=== PATIENT | male | born 1980 | race Caucasian/White ===

== ENCOUNTER 2017-02-21 12:45 | Emergency (ER) | payer SELFPAY ==
--- NOTE | 2017-02-21 12:58 | Emergency Department Report ---
ED General Adult HPI - General Chief complaint: Upper Respiratory Infection Stated complaint: SOB/CHEST PAIN/COUGHING Time Seen by Provider: 02/21/17 12:51 Source: patient Mode of arrival: Ambulatory Limitations: No Limitations - History of Present Illness Initial comments: PT c/o c/c/c since Tuesday. PT states he had to leave work today because of his symptoms. PT states he has taken otc medications without relief. Pt is a smoker. PT states he has a hx of URI last year PT states NKDA. Complaint: cough -: Gradual Location: chest Consistency: constant Worsens with: other (worse at work today, had to leave ) Associated Symptoms: denies: chest pain, fever/chills, nausea/vomiting Treatments Prior to Arrival: other (otc cold medication ) - Related Data Previous Rx's Medication Instructions Recorded Last Taken Type Albuterol Sulfate [Ventolin HFA] 2 puff IH Q4H PRN #1 hfa.aer.ad 02/21/17 Unknown Rx Benzonatate [Tessalon Perles] 100 mg PO Q8HR PRN #12 capsule 02/21/17 Unknown Rx Guaifenesin/Pseudoephedrne HCl 1 each PO BID PRN #6 tab.er.12h 02/21/17 Unknown Rx [Mucinex D ER 1,200-120 mg Tab] Ibuprofen [Motrin] 600 mg PO Q8H PRN #15 tablet 02/21/17 Unknown Rx Allergies Allergy/AdvReac Type Severity Reaction Status Date / Time No Known Allergies Allergy Unverified 02/21/17 12:57 ED Review of Systems ROS: Stated complaint: SOB/CHEST PAIN/COUGHING Other details as noted in HPI Comment: All other systems reviewed and negative Constitutional: malaise. denies: fever ENT: congestion. denies: throat pain Respiratory: cough, other (at times, productive ). denies: shortness of breath , SOB with exertion, SOB at rest Cardiovascular: denies: chest pain Gastrointestinal: denies: vomiting Musculoskeletal: denies: back pain ED Past Medical Hx - Past Medical History Previous Medical History?: No - Surgical History Additional Surgical History: Ankle surgery (R) - Social History Smoking Status: Current Every Day Smoker - Medications Home Medications: Home Medications Medication Instructions Recorded Confirmed Last Taken Type Albuterol Sulfate [Ventolin HFA] 2 puff IH Q4H PRN #1 hfa.aer.ad 02/21/17 Unknown Rx Benzonatate [Tessalon Perles] 100 mg PO Q8HR PRN #12 capsule 02/21/17 Unknown Rx Guaifenesin/Pseudoephedrne HCl 1 each PO BID PRN #6 tab.er.12h 02/21/17 Unknown Rx [Mucinex D ER 1,200-120 mg Tab] Ibuprofen [Motrin] 600 mg PO Q8H PRN #15 tablet 02/21/17 Unknown Rx ED Physical Exam - General Limitations: No Limitations, Language Barrier General appearance: alert, in no apparent distress - Head Head exam: Present: atraumatic, normocephalic, normal inspection - Eye Eye exam: Present: normal appearance, PERRL, EOMI. Absent: conjunctival injection - ENT ENT exam: Present: normal exam, normal orophraynx, mucous membranes moist, normal external ear exam - Expanded ENT Exam Expanded Mouth exam: Absent: drooling, trismus Throat exam: Negative: tonsillar erythema, tonsillomegaly, tonsillar exudate - Neck Neck exam: Present: normal inspection, full ROM. Absent: lymphadenopathy - Respiratory Respiratory exam: Present: rhonchi (LLL). Absent: respiratory distress, wheezes - Cardiovascular Cardiovascular Exam: Present: regular rate, normal rhythm, normal heart sounds - GI/Abdominal GI/Abdominal exam: Present: soft. Absent: tenderness - Extremities Exam Extremities exam: Present: normal inspection, full ROM - Back Exam Back exam: Present: normal inspection, full ROM - Neurological Exam Neurological exam: Present: alert, oriented X3 - Psychiatric Psychiatric exam: Present: normal affect, normal mood - Skin Skin exam: Present: warm, dry, abrasion (to R FA ). Absent: intact ED Course Vital Signs 02/21/17 12:50 Temperature 98.2 F Pulse Rate 81 Respiratory 18 Rate Blood Pressure 120/79 [Right] O2 Sat by Pulse 99 Oximetry - Reevaluation(s) Reevaluation #1: 02/21/17 13:00 PT refused TDAP vaccine Reevaluation #2: 02/21/17 14:23 PT aware of XR result and plan of care. PT has no questions at this time. - Pulse Oximetry Interpretation Digit-Finger Initial Pulse Oximetry Readin Actions Taken: none ED Medical Decision Making - Radiology Data Radiology results: report reviewed CXR- NAP - Differential Diagnosis uri, bronchitis, pna Critical Care Time: No Critical care attestation.: If time is entered above; I have spent that time in minutes in the direct care of this critically ill patient, excluding procedure time. ED Disposition Clinical Impression: Viral URI with cough, Tobacco abuse Abrasion of arm, right Qualifiers: Encounter type: initial encounter Qualified Code(s): S40.811A - Abrasion of right upper arm, initial encounter Disposition: TO HOME OR SELFCARE Is pt being admited?: No Does the pt Need Aspirin: No Condition: Stable Instructions: How to Stop Smoking (ED), Upper Respiratory Infection (ED), Cold Symptoms (ED) Additional Instructions: REST increase fluids Follow up with PCP in 3-5 days Refrain from smoking Prescriptions: Albuterol Sulfate [Ventolin HFA] 2 puff IH Q4H PRN #1 hfa.aer.ad PRN Reason: Shortness Of Breath Benzonatate [Tessalon Perles] 100 mg PO Q8HR PRN #12 capsule PRN Reason: Cough Guaifenesin/Pseudoephedrne HCl [Mucinex D ER 1,200-120 mg Tab] 1 each PO BID PRN #6 tab.er.12h PRN Reason: Cough Ibuprofen [Motrin] 600 mg PO Q8H PRN #15 tablet PRN Reason: Pain Referrals: [facility] [Outside] - 3-5 Days JORDON STONE MD [Staff Physician] - 3-5 Days Forms: Work/School Release Form(ED) Time of Disposition: 13:51
--- NOTE | 2017-02-21 13:35 | XRay Report ---
CHEST 2 VIEWS INDICATION: Cough. COMPARISON: None similar at this institution. FINDINGS: PA and lateral chest radiographs demonstrate normal cardiomediastinal silhouette. Clear lungs. Intact bones. CONCLUSION: No acute disease in the chest. Thank you for the opportunity to participate in this patient's care.
[2017-02-21 14:01] VITALS: BP 120/79
== END 2017-02-21 14:35 | disposition home or self-care (01) ==
LOC: ED 12:45
DX: J06.9 Acute upper respiratory infection, unspecified (principal); S40.811A Abrasion of right upper arm, initial encounter; F17.210 Nicotine dependence, cigarettes, uncomplicated; X58.XXXA Exposure to other specified factors, initial encounter; Y93.89 Activity, other specified; Y92.89 Other specified places as the place of occurrence of the external cause; Y99.8 Other external cause status
CPT/HCPCS: 71020; 99283